=== PATIENT | male | born 1975 | race Caucasian/White ===

== ENCOUNTER 2019-05-29 20:38 | Emergency (ER) | payer BC ==
[~2019-05-29] VITALS: Ht 175.3 cm; Wt 101.6 kg
[2019-05-29 20:47] VITALS: Ht 175.3 cm; Wt 101.6 kg
[2019-05-29 21:17] VITALS: BP 151/101
== END 2019-05-29 21:17 | disposition home or self-care (01) ==
LOC: ED 20:38
DX: S43.005A Unspecified dislocation of left shoulder joint, initial encounter (principal); W18.30XA Fall on same level, unspecified, initial encounter; Y93.64 Activity, baseball; Y92.89 Other specified places as the place of occurrence of the external cause; Y99.8 Other external cause status